=== PATIENT | male | born 1985 | race Caucasian/White ===

== ENCOUNTER 2019-04-26 13:09 | Emergency (ER) | payer SELFPAY ==
[2019-04-26] MEDS ORDERED: Sulfameth/Trimethoprim DS 800-160mg TAB ONE (13:39)
[2019-04-26] MEDS ORDERED: Acetaminophen 325 MG TAB ONE (13:39)
--- NOTE | 2019-04-26 14:05 | RAD ---
Exam:3 views left foot HISTORY: Pain. Swelling. Erythema. COMPARISON: None FINDINGS: Lisfranc alignment is maintained. Joint spaces are preserved. No fracture. No cortical irre gularity or periosteal reaction. IMPRESSION: Unremarkable left foot 3 views
== END 2019-04-26 14:16 | disposition home or self-care (01) ==
LOC: NAV ERS 13:09
DX: L02.612 Cutaneous abscess of left foot (principal); F17.210 Nicotine dependence, cigarettes, uncomplicated
CPT/HCPCS: 87070; 87077; 87205

== ENCOUNTER 2019-07-14 12:04 | Emergency (ER) | payer SELFPAY ==
[2019-07-14] MEDS ORDERED: Fluorescein Opthalmic Strip ONE (12:18)
[2019-07-14] MEDS ORDERED: Sodium Chloride 0.9% 500 ML ONE (12:29)
== END 2019-07-14 13:22 | disposition home or self-care (01) ==
LOC: NAV ERS 12:04
DX: Z77.098 Contact with and (suspected) exposure to other hazardous, chiefly nonmedicinal, chemicals (principal); F17.210 Nicotine dependence, cigarettes, uncomplicated
CPT/HCPCS: 99406; J7050